=== PATIENT | male | born 1970 | race Caucasian/White ===

== ENCOUNTER 2019-07-20 13:02 | Emergency (ER) | payer OTHER ==
[~2019-07-20] VITALS: Ht 193 cm; Wt 112.9 kg
[2019-07-20 13:07] VITALS: BP 164/92
== END 2019-07-20 14:15 | disposition home or self-care (01) ==
LOC: ED 14:00
DX: S80.01XA Contusion of right knee, initial encounter (principal); X50.1XXA Overexertion from prolonged static or awkward postures, initial encounter; Y93.89 Activity, other specified; Y92.89 Other specified places as the place of occurrence of the external cause; Y99.8 Other external cause status
CPT/HCPCS: 29505; 99283